=== PATIENT | female | born 1945 | race Caucasian/White ===

== ENCOUNTER 2018-07-17 09:33 | Day surgery (SDC) | payer BC ==
[2018-07-10 11:28] VITALS: BMI 32.8
[2018-07-17] MEDS ORDERED: MIDAZOLAM HCL 2 MG/2 ML SINGLE DOSE VIAL ONE (10:33)
[2018-07-17] MEDS ORDERED: ROPIVACAINE HCL 0.5% 30ML VIAL ONE (10:33)
[2018-07-17] MEDS ORDERED: PROPOFOL 20 ML ONE (11:15)
[2018-07-17] MEDS ORDERED: LIDOCAINE HCL/PF 2% SDV 5ML VIAL ONE (11:15)
[2018-07-17] MEDS ORDERED: ceFAZolin SODIUM 1 GM VIAL ONE (11:24)
[2018-07-17] MEDS ORDERED: ESMOLOL HCL 100,000 MCG/10 ML VIAL ONE (11:34)
[2018-07-17] MEDS ORDERED: DEXAMETHASONE SOD PHOSPHATE 4 MG/1 ML VIAL ONE (11:41)
[2018-07-17] MEDS ORDERED: PHENYLEPHRINE HCL 10 MG/1 ML SINGLE DOSE VIAL ONE (11:43)
[2018-07-17] MEDS ORDERED: ONDANSETRON 4 MG/2 ML VIAL ONE (11:59)
[2018-07-17] MEDS ORDERED: ONDANSETRON 4 MG/2 ML VIAL IVPUSH PRN (12:49)
[2018-07-17] MEDS ORDERED: oxyCODONE HCL 5 MG TABLET PO PRN (12:49)
[2018-07-17] MEDS ORDERED: LACTATED RINGERS SOLUTION 1,000 ML IV SCH (13:00)
[2018-07-17 13:50] VITALS: TEMP 97.5
[2018-07-17 15:05] VITALS: BP 124/69; PULSE 89
--- NOTE | 2018-07-17 15:57 | OP ---
DATE OF OPERATION: 07/17/2018 SURGEON: Lebron Carroll M.D. CALCULATION CLERK: Beth Mukherjee PREOPERATIVE DIAGNOSIS: 1. Left shoulder rotator cuff tear. 2. Left shoulder adhesive capsulitis. 3. Left shoulder impingement syndrome. 4. Left shoulder acromioclavicular joint disease. 5. Left shoulder superior labrum anterior posterior with synovitis. 6. Left shoulder ganglion cyst. POSTOPERATIVE DIAGNOSIS: 1. Left shoulder rotator cuff tear. 2. Left shoulder adhesive capsulitis. 3. Left shoulder impingement syndrome. 4. Left shoulder acromioclavicular joint disease. 5. Left shoulder superior labrum anterior posterior with synovitis. 6. Left shoulder ganglion cyst. PROCEDURE: 1. Left shoulder arthroscopy, with arthroscopic repair of rotator cuff, CPT code 22485. 2. Left shoulder arthroscopy with lysis of adhesions, CPT code 51434. 3. Left shoulder arthroscopy with subacromial decompression, CPT code 90042. 4. Left shoulder arthroscopy with resection of clavicle, acromioclavicular joint, CPT code 96173. 5. Left shoulder arthroscopy with debridement, CPT code 86852. 6. Left shoulder open excision anterior ganglion cyst. FINDINGS: 1. Excision ganglion cyst coming from the acromioclavicular joint 6 cm x 8 cm anteriorly. 2. Excessive tearing anterior posterior labrum. 3. glenoid humerus. 4. Partial biceps tear 20%. 5. Superior labrum anterior posterior type 1 with partial type 2. 6. Full thickness supraspinatus into infraspinatus tear along the medial portion. 7. Repair type: 3 side to side sutures placed along the posterior portio of the tendon including the supraspinatus, infraspinatus, allowing for complete closure, 3 side to side sutures using 2-0 Fiberwire performed. PROCEDURE: Informed consent was obtained. The patient was taken to the operating room, where the upper extremity was prepped and draped in a sterile fashion. The shoulder was manipulated for a full range of motion. A posterior incision portal was made and directed to the glenohumeral joint. Under direct visualization, an anterior incision and portal was made. Extensive synovitis, as well as chondral injuries throughout the glenohumeral joint were debrided and removed. Any identified labral injuries, including the superior labral tear, anterior and posterior, and anterior labrum torn portions, were removed as well. The rotator cuff was visualized and noted to have a full-thickness tear. The edges were debrided. The posterior incision portal was redirected to the subacromial space where a lateral incision portal was made. Excessive and thickened scar tissue noted throughout the subacromial space, including bursal and scar tissue, were removed. The type 2 acromion was converted into a flattened type 1 using a bur for subacromial decompression. The distal inferior spur at the distal clavicle was also debrided with the use of an accessory portal in the acromioclavicular joint. The edges of the rotator cuff were identified. Sutures were placed into the rotator cuff and secured using anchors through the greater tuberosity. Prior to securing, a bleeding bed was made using a small bur, creating a bleeding surface of the rotator cuff insertion. The shoulder was then drained, a single suture was placed in all portals, a sterile dressing was placed and the patient was transferred to the recovery room without complication. The PA listed above was present and assisted at surgery. Their presence was absolutely medically necessary for the completion of the procedure. They helped hold the arthroscopy, pass instruments (and implants when indicated) and the procedure could not have been completed without their assistance. ADDENDUM: Due to the size of the cyst, an incision was made on the area of the cyst and was taken down to the stalk from the AC joint. This was excised and sent to pathology for evaluation. A distal clavicle resection was performed as part of the arthroscopic procedure, which also allowed for removal of a portion of the cyst. Wound was irrigated with copious amounts of irrigation and closed with 2-0 Vicryl and 3-0 nylon. Sterile dressing was placed. The patient was transferred to recovery without complications. NOTE: Please note that Gumaro Walters, physician family service assistant, was needed to perform the surgery. There was extensive tearing, and family service assistant was needed for use of the arthroscopy, placement of implants, and passage of sutures. Without his assistance the case could not have been performed. His assistance was medically necessary. LEBRON CARROLL M.D. [id number]
--- NOTE | 2018-07-21 17:25 | PATH ---
Surgical Pathology Report Patient Name: JUAN ANTONIO RICO [facility]. Rec. #: [id number] /Age/Gender: 1945 (Age: 72) / F Account: [id number] Location: [facility] Taken: 07/17/2018 Received: 07/17/2018 Reported: 07/21/2018 Physicians: Lebron Wyatt M.D. Specimen(s) Received A: LEFT SHOULDER MASS B: LEFT SHOULDER SHAVINGS Clinical History Bursitis of left shoulder Final Diagnosis A. SHOULDER MASS, LEFT, ARTHROSCOPY AND REMOVAL: DENSE FIBROCONNECTIVE TISSUE WITH MYXOID AND DEGENERATIVE CHANGES CONSISTENT WITH GANGLION CYST AND FIBROADIPOSE TISSUE. B. SHOULDER SHAVINGS, LEFT, ARTHROSCOPY: FRAGMENTS OF BENIGN CARTILAGE, DENSE FIBROCONNECTIVE TISSUE, ADIPOSE TISSUE, AND SKELETAL MUSCLE. NODULAR CALCIFIC AGGREGATES CONSISTENT WITH CHONDROCALCINOSIS PRESENT. Electronically Signed Sabra Sanders M.D. Gross Description A. Received in formalin labeled "left shoulder mass" is a 5.0 x 1.8 x 1.3 cm dunham-yellow, irregular portion of soft tissue. Sectioning reveals focal dunham fibromembranous tissue. Product Marketing Manager sections are submitted in one cassette. B. Received in formalin, labeled "left shoulder shaving," is a 4.5 x 4.0 x 0.4 cm. aggregate of dunham-yellow soft tissue fragments. A marketing development representative portion is submitted in one cassette. /07/20/201807/20/2018
== END 2018-07-17 15:26 | disposition home or self-care (01) ==
LOC: FASU 09:33
PROVIDERS: ATTEND Orthopaedic Surgery
PROC: 0RNK4ZZ Release Left Shoulder Joint, Percutaneous Endoscopic Approach (ICD-10-PCS; 2018-07-17)
PROC: 0RBK4ZZ Excision of Left Shoulder Joint, Percutaneous Endoscopic Approach (ICD-10-PCS; 2018-07-17)
PROC: 0PBB4ZZ Excision of Left Clavicle, Percutaneous Endoscopic Approach (ICD-10-PCS; 2018-07-17)
PROC: 0KB60ZZ Excision of Left Shoulder Muscle, Open Approach (ICD-10-PCS; 2018-07-17)
PROC: 0LQ24ZZ Repair Left Shoulder Tendon, Percutaneous Endoscopic Approach (ICD-10-PCS; principal; 2018-07-17 11:42)
DX: M75.122 Complete rotator cuff tear or rupture of left shoulder, not specified as traumatic (principal); M75.02 Adhesive capsulitis of left shoulder; M75.42 Impingement syndrome of left shoulder; M19.012 Primary osteoarthritis, left shoulder; M65.812 Other synovitis and tenosynovitis, left shoulder; S43.432A Superior glenoid labrum lesion of left shoulder, initial encounter; X58.XXXA Exposure to other specified factors, initial encounter; Y93.9 Activity, unspecified; Y92.9 Unspecified place or not applicable; M67.412 Ganglion, left shoulder
CPT/HCPCS: 82962; 88304-TC; 94760

== ENCOUNTER 2019-05-18 15:52 | Emergency (ER) | payer OTHER, BC ==
[2019-05-18 15:58] VITALS: TEMP 98; BMI 32.2
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
[2019-05-18] MEDS ORDERED: ACETAMINOPHEN 325 MG TABLET (FP) PO ONE (17:25)
[2019-05-18] MEDS ORDERED: ACETAMINOPHEN 325 MG TABLET (FP) ONE (17:54)
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
[2019-05-18 18:23] VITALS: BP 132/72; PULSE 103
== END 2019-05-18 18:23 | disposition home or self-care (01) ==
LOC: JER 15:52
DX: Z04.1 Encounter for examination and observation following transport accident (principal); I10 Essential (primary) hypertension; E78.5 Hyperlipidemia, unspecified; E11.9 Type 2 diabetes mellitus without complications; M19.90 Unspecified osteoarthritis, unspecified site; E78.00 Pure hypercholesterolemia, unspecified; F17.210 Nicotine dependence, cigarettes, uncomplicated
CPT/HCPCS: 71045-TC-FY; 71111-TC-FY; 73523-TC-FY; 99283-25

== ENCOUNTER 2020-12-15 05:06 | Day surgery (SDC) | payer BC ==
[2020-12-13 12:59] VITALS: BMI 30.9
[2020-12-15] MEDS ORDERED: BUPIVACAINE HCL/PF 0.75% 10 ML VIAL ONE ×2 (07:27→09:42)
[2020-12-15] MEDS ORDERED: LIDOCAINE HCL/PF 1% SDV 5ML VIAL ONE (07:32)
[2020-12-15] MEDS ORDERED: LIDOCAINE HCL 1% PRESERVATIVE FREE - 30ML VIAL IJ ONE (09:25)
[2020-12-15] MEDS ORDERED: IOHEXOL 180 MG/1 ML ML IJ ONE (09:25)
[2020-12-15] MEDS ORDERED: BUPIVACAINE HCL/PF 0.75% 10 ML VIAL NR ONE (09:29)
[2020-12-15] MEDS ORDERED: LIDOCAINE HCL 1%, 10 MG/ML (20ML VIAL) ONE (09:41)
[2020-12-15] MEDS ORDERED: LIDOCAINE HCL 0.5%, 5 MG/ML (50mL SDVIAL) ONE (09:41)
[2020-12-15] MEDS ORDERED: BUPIVACAINE HCL ONE (09:42)
[2020-12-15 09:44] VITALS: BP 136/84; PULSE 88; TEMP 98.6
== END 2020-12-15 10:30 | disposition home or self-care (01) ==
LOC: JASU-SURG 05:06
PROVIDERS: ATTEND Pain Medicine Pain Medicine
PROC: 3E0T33Z Introduction of Anti-inflammatory into Peripheral Nerves and Plexi, Percutaneous Approach (ICD-10-PCS; 2020-12-15)
PROC: 3E0T3BZ Introduction of Anesthetic Agent into Peripheral Nerves and Plexi, Percutaneous Approach (ICD-10-PCS; principal; 2020-12-15 09:30)
DX: M47.816 Spondylosis without myelopathy or radiculopathy, lumbar region (principal)
CPT/HCPCS: 76000-TC-FY

== ENCOUNTER 2021-01-05 04:27 | Day surgery (SDC) | payer BC ==
[2021-01-04 13:14] VITALS: BMI 30.9
[2021-01-05] MEDS ORDERED: LIDOCAINE HCL/PF 1% SDV 5ML VIAL ONE (07:40)
[2021-01-05] MEDS ORDERED: DEXAMETHASONE SOD PHOSPHATE 10 MG/1 ML VIAL ONE (08:47)
[2021-01-05 08:54] VITALS: BP 128/72; PULSE 92; TEMP 98.5
== END 2021-01-05 09:15 | disposition home or self-care (01) ==
LOC: JASU-SURG 04:27
PROVIDERS: ATTEND Pain Medicine Pain Medicine
PROC: 3E0R33Z Introduction of Anti-inflammatory into Spinal Canal, Percutaneous Approach (ICD-10-PCS; 2021-01-05)
PROC: B01BYZZ Fluoroscopy of Spinal Cord using Other Contrast (ICD-10-PCS; 2021-01-05)
PROC: 3E0R3BZ Introduction of Anesthetic Agent into Spinal Canal, Percutaneous Approach (ICD-10-PCS; principal; 2021-01-05 08:15)
DX: M54.16 Radiculopathy, lumbar region (principal); M48.061 Spinal stenosis, lumbar region without neurogenic claudication
CPT/HCPCS: 76000-TC-FY; J1100

== ENCOUNTER 2022-02-26 14:38 | Emergency (ER) | payer BC, OTHER ==
[2022-02-26] MEDS ORDERED: ACETAMINOPHEN 325 MG TABLET (FP) PO ONE (15:29)
[2022-02-26] MEDS ORDERED: LIDOCAINE 5% TOPICAL PATCH TP ONE (15:30)
[2022-02-26] MEDS ORDERED: DIPHTH,PERTUSS(ACELL),TET 0.5 ML DISP.SYRIN IM ONE ×2 (15:30→15:42)
[2022-02-26 15:34] VITALS: BP 125/60; PULSE 107; RESP 20; TEMP 98.2; BMI 28.5
[2022-02-26] MEDS ORDERED: ACETAMINOPHEN 325 MG TABLET (FP) ONE (15:42)
[2022-02-26] MEDS ORDERED: LIDOCAINE 5% TOPICAL PATCH ONE (15:43)
[2022-02-26] MEDS ORDERED: KETOROLAC TROMETHAMINE 30 MG/1 ML VIAL IM ONE (18:06)
[2022-02-26] MEDS ORDERED: KETOROLAC TROMETHAMINE 30 MG/1 ML VIAL ONE (18:37)
[2022-02-26] MEDS ORDERED: LIDOCAINE PATCH REMOVAL MC SCH (22:00)
== END 2022-02-26 19:40 | disposition home or self-care (01) ==
LOC: JER 14:38
PROC: 3E0234Z Introduction of Serum, Toxoid and Vaccine into Muscle, Percutaneous Approach (ICD-10-PCS; principal; 2022-02-26)
PROC: 3E0233Z Introduction of Anti-inflammatory into Muscle, Percutaneous Approach (ICD-10-PCS; 2022-02-26)
DX: S09.90XA Unspecified injury of head, initial encounter (principal); W01.0XXA Fall on same level from slipping, tripping and stumbling without subsequent striking against object, initial encounter
CPT/HCPCS: 70450-TC; 72125-TC; 73030-TC-RT-FY; 90715; 93005; 93010; 99285-25

== ENCOUNTER 2023-07-14 19:26 | Inpatient (IN) | payer BC, OTHER ==
[2023-07-14] MEDS ORDERED: ASPIRIN 81 MG CHEWABLE TABLETS ONE (20:23)
[2023-07-14] MEDS: ASPIRIN 81 MG CHEWABLE TABLETS PO ONE (20:35)
[2023-07-14 20:48] LABS: BASO % 0.5 % (0-2.0); EOS % 0.5 % (0-4.5); HEMATOCRIT 33.6 % (32.4-45.2); HEMOGLOBIN 10.8 GM/dL (10.7-15.3); LYMPH % 7.7 % (8-40); MCH 29.3 pg (25.7-33.7); MCHC 32.2 g/dl (32.0-36.0); MEAN CELL VOLUME 90.8 fl (80-96); MEAN PLT VOLUME 8.7 fl (7.5-11.1); MONO % 3.4 % (3.8-10.2); NEUT % 87.9 % (42.8-82.8); PLATELET COUNT 316 10^3/uL (134-434); RDW 19.3 % (11.6-15.6)
[2023-07-14 20:55] LABS: INR 1.16 (0.83-1.09); PROTHROMBIN TIME (PATIENT) 13.4 SEC (9.7-13.0)
[2023-07-14 20:58] LABS: ACTIVATED PTT 25.4 SECONDS (25.2-36.5)
[2023-07-14] MEDS ORDERED: dilTIAZem HCL 125 MG/25 ML - 25 ML VIAL ONE (21:01)
[2023-07-14 21:02] LABS: POTASSIUM 4.7 mmol/L (3.5-5.1)
[2023-07-14] MEDS ORDERED: HEPARIN INFUSION - 25,000 UNITS/500 ML INFUS.BAG IVPB ONE (21:02)
[2023-07-14 21:04] LABS: CALCIUM 9.7 mg/dL (8.5-10.1)
[2023-07-14 21:05] LABS: ALBUMIN 2.9 g/dl (3.4-5.0); BLOOD UREA NITROGEN 51.6 mg/dL (7-18); MAGNESIUM 2.4 mg/dL (1.8-2.4)
[2023-07-14 21:08] LABS: CREATININE 2.3 mg/dL (0.55-1.3)
[2023-07-14 21:09] LABS: BILIRUBIN,TOTAL 1.1 mg/dL (0.2-1); TOT PROT 6.4 g/dl (6.4-8.2)
[2023-07-14 21:13] LABS: N-TERMINAL BNP 11747.3 pg/ml (5-450)
[2023-07-14] MEDS: dilTIAZem HCL 50 MG/10 ML - 10 ML VIAL IVPUSH ONE (21:28)
[2023-07-14] MEDS ORDERED: HEPARIN INFUSION - 500 ML IVPB SCH (21:30)
[2023-07-14] MEDS ORDERED: HEPARIN NA (PORCINE) 5,000 UNITS/ML 1ML VIAL IVPUSH PRN ×2 (21:48)
[2023-07-14] MEDS ORDERED: METOPROLOL TARTRATE 25 MG TABLET (FP) ONE (21:53)
[2023-07-14] MEDS: HEPARIN SOD,PORK IN 0.45% NACL 25,000 UNIT/500 ML INFUS.BAG IVPB SCH (22:10)
[2023-07-14] MEDS ORDERED: EMPAGLIFLOZIN (JARDIANCE) 10 MG TABLET PO SCH ×2 (22:15→22:30)
[2023-07-14] MEDS: METOPROLOL TARTRATE 25 MG TABLET (FP) PO STA (22:18)
[2023-07-14] MEDS ORDERED: METOPROLOL TARTRATE 5 MG/5 ML VIAL ONE (23:17)
[2023-07-14] MEDS: METOPROLOL TARTRATE 5 MG/5 ML VIAL IVPUSH ONE (23:21)
[2023-07-15 01:40] VITALS: BMI 27.3
[2023-07-15] MEDS: FUROSEMIDE 40 MG/4 ML INJECTABLE VIAL IVPUSH SCH (01:52)
[2023-07-15] MEDS: INSULIN ASPART SLIDING SCALE (NOVOLOG) 1 VIAL SQ SCH (06:02)
[2023-07-15] MEDS: EMPAGLIFLOZIN (JARDIANCE) 10 MG TABLET PO SCH (06:53)
[2023-07-15 08:20] LABS: EOS % 1.3 % (0-4.5); HEMATOCRIT 31.9 % (32.4-45.2); HEMOGLOBIN 10.2 GM/dL (10.7-15.3); LYMPH % 21.8 % (8-40); MCH 29.3 pg (25.7-33.7); MCHC 32.1 g/dl (32.0-36.0); MEAN CELL VOLUME 91.3 fl (80-96); MEAN PLT VOLUME 8.8 fl (7.5-11.1); MONO % 4.2 % (3.8-10.2); NEUT % 70.7 % (42.8-82.8); PLATELET COUNT 305 10^3/uL (134-434); RBC 3.49 M/mm3 (3.60-5.2); RDW 19.4 % (11.6-15.6); WHITE BLOOD COUNT 4.7 K/mm3 (4.0-10.0)
[2023-07-15 08:40] LABS: POTASSIUM 4.3 mmol/L (3.5-5.1)
[2023-07-15 08:42] LABS: CALCIUM 9.5 mg/dL (8.5-10.1)
[2023-07-15 08:43] LABS: ALBUMIN 2.8 g/dl (3.4-5.0); BLOOD UREA NITROGEN 59.6 mg/dL (7-18); MAGNESIUM 2.5 mg/dL (1.8-2.4)
[2023-07-15 08:46] LABS: CREATININE 2.5 mg/dL (0.55-1.3)
[2023-07-15 08:47] LABS: TOT PROT 5.8 g/dl (6.4-8.2)
[2023-07-15 08:48] LABS: BILIRUBIN,DIRECT 0.5 mg/dL (0.0-0.2)
[2023-07-15 08:49] LABS: PHOSPHOROUS 4.6 mg/dL (2.5-4.9)
[2023-07-15 08:50] LABS: BILIRUBIN,TOTAL 1.6 mg/dL (0.2-1)
[2023-07-15] MEDS: metoPROLOL SUCCINATE 25 MG TAB.SR.24H (FP) PO ONE ×2 (12:40→21:49)
[2023-07-15 15:43] LABS: PH,URINE 5.5 (5.0-8.0); URINE APPEARANCE CLEAR; URINE BILIRUBIN NEGATIVE (NEGATIVE); URINE COLOR YELLOW; URINE GLUCOSE (UA) 2+ (NEGATIVE); URINE KETONE NEGATIVE (NEGATIVE); URINE LEUK ESTERASE NEGATIVE (NEGATIVE); URINE NITRITE NEGATIVE (NEGATIVE); URINE PROTEIN NEGATIVE (NEGATIVE); URINE UROBILINOGEN 0.2 mg/dL (0.2-1.0)
[2023-07-15] MEDS: RIVAROXABAN 15 MG TABLET PO SCH (17:34)
[2023-07-15] MEDS: SACUBITRIL/VALSARTAN 24 MG-26 MG TABLET PO SCH (21:49)
[2023-07-16] MEDS: INSULIN (LEVEMIR) 100 UNITS/ML UNITS SQ SCH (06:51)
[2023-07-16] MEDS: metoPROLOL SUCCINATE 25 MG TAB.SR.24H (FP) PO SCH ×2 (09:24→21:09)
[2023-07-16 09:46] LABS: HEMATOCRIT 33.7 % (32.4-45.2); HEMOGLOBIN 10.8 GM/dL (10.7-15.3); MCH 29.1 pg (25.7-33.7); MCHC 32.1 g/dl (32.0-36.0); MEAN CELL VOLUME 90.9 fl (80-96); MEAN PLT VOLUME 8.7 fl (7.5-11.1); PLATELET COUNT 291 10^3/uL (134-434); RDW 19.2 % (11.6-15.6); WHITE BLOOD COUNT 4.7 K/mm3 (4.0-10.0)
[2023-07-16 10:00] LABS: BILIRUBIN,DIRECT 0.4 mg/dL (0.0-0.2)
[2023-07-16] MEDS ORDERED: metoPROLOL SUCCINATE 25 MG TAB.SR.24H (FP) PO SCH (10:00)
[2023-07-16 10:02] LABS: BLOOD UREA NITROGEN 58.9 mg/dL (7-18)
[2023-07-16 10:05] LABS: ALBUMIN 2.5 g/dl (3.4-5.0); CREATININE 2.6 mg/dL (0.55-1.3); PHOSPHOROUS 3.9 mg/dL (2.5-4.9)
[2023-07-16 10:06] LABS: BILIRUBIN,TOTAL 0.8 mg/dL (0.2-1); CALCIUM 9.3 mg/dL (8.5-10.1); MAGNESIUM 2.3 mg/dL (1.8-2.4); TOT PROT 5.5 g/dl (6.4-8.2)
[2023-07-17 09:19] LABS: POTASSIUM 4.1 mmol/L (3.5-5.1)
[2023-07-17 10:13] LABS: CREATININE 2.6 mg/dL (0.55-1.3)
[2023-07-17 10:14] LABS: BILIRUBIN,TOTAL 0.6 mg/dL (0.2-1); TOT PROT 5.7 g/dl (6.4-8.2)
[2023-07-17 10:15] LABS: ALBUMIN 2.4 g/dl (3.4-5.0); CALCIUM 9.4 mg/dL (8.5-10.1)
[2023-07-17 10:16] LABS: BLOOD UREA NITROGEN 59.7 mg/dL (7-18); MAGNESIUM 2.1 mg/dL (1.8-2.4)
[2023-07-18 09:06] LABS: HEMATOCRIT 34.6 % (32.4-45.2); HEMOGLOBIN 11.1 GM/dL (10.7-15.3); MCH 28.6 pg (25.7-33.7); MCHC 32.1 g/dl (32.0-36.0); MEAN CELL VOLUME 89.2 fl (80-96); MEAN PLT VOLUME 8.2 fl (7.5-11.1); PLATELET COUNT 348 10^3/uL (134-434); RBC 3.88 M/mm3 (3.60-5.2); RDW 18.6 % (11.6-15.6); WHITE BLOOD COUNT 5.7 K/mm3 (4.0-10.0)
[2023-07-18 09:26] LABS: POTASSIUM 3.4 mmol/L (3.5-5.1)
[2023-07-18 09:32] LABS: BLOOD UREA NITROGEN 68.2 mg/dL (7-18); CALCIUM 8.8 mg/dL (8.5-10.1); MAGNESIUM 2.3 mg/dL (1.8-2.4)
[2023-07-18 09:33] LABS: ALBUMIN 2.4 g/dl (3.4-5.0)
[2023-07-18 09:35] LABS: PHOSPHOROUS 4.2 mg/dL (2.5-4.9)
[2023-07-18 09:36] LABS: CREATININE 2.5 mg/dL (0.55-1.3)
[2023-07-18 09:37] LABS: BILIRUBIN,TOTAL 0.6 mg/dL (0.2-1); TOT PROT 5.2 g/dl (6.4-8.2)
[2023-07-18] MEDS: SACUBITRIL/VALSARTAN 24 MG-26 MG TABLET PO SCH (21:24)
[2023-07-19 08:00] LABS: HEMATOCRIT 32.8 % (32.4-45.2); HEMOGLOBIN 10.7 GM/dL (10.7-15.3); MCH 29.1 pg (25.7-33.7); MCHC 32.7 g/dl (32.0-36.0); MEAN CELL VOLUME 88.9 fl (80-96); PLATELET COUNT 334 10^3/uL (134-434); RBC 3.69 M/mm3 (3.60-5.2); RDW 19.3 % (11.6-15.6); WHITE BLOOD COUNT 7.2 K/mm3 (4.0-10.0)
[2023-07-19 08:31] LABS: POTASSIUM 3.6 mmol/L (3.5-5.1)
[2023-07-19 08:53] LABS: ALBUMIN 2.3 g/dl (3.4-5.0); BLOOD UREA NITROGEN 70.9 mg/dL (7-18); CALCIUM 8.8 mg/dL (8.5-10.1); MAGNESIUM 2.1 mg/dL (1.8-2.4)
[2023-07-19 08:56] LABS: CREATININE 2.6 mg/dL (0.55-1.3)
[2023-07-19 08:57] LABS: BILIRUBIN,TOTAL 0.7 mg/dL (0.2-1); TOT PROT 5.4 g/dl (6.4-8.2)
[2023-07-19] MEDS: POTASSIUM CHLORIDE ORAL LIQUID 20 MEQ/15 ML PO ONE (16:40)
[2023-07-19] MEDS: INSULIN (LEVEMIR) 100 UNITS/ML UNITS SQ SCH (21:29)
[2023-07-20] MEDS: FUROSEMIDE 40 MG/4 ML INJECTABLE VIAL IVPUSH SCH (06:33)
[2023-07-20 08:58] LABS: POTASSIUM 4.1 mmol/L (3.5-5.1)
[2023-07-20 08:59] LABS: BLOOD UREA NITROGEN 69.2 mg/dL (7-18); CALCIUM 9.2 mg/dL (8.5-10.1)
[2023-07-20 09:01] LABS: ALBUMIN 2.4 g/dl (3.4-5.0)
[2023-07-20 09:04] LABS: BILIRUBIN,TOTAL 0.7 mg/dL (0.2-1); CREATININE 2.5 mg/dL (0.55-1.3); TOT PROT 5.9 g/dl (6.4-8.2)
[2023-07-20] MEDS: ACETAMINOPHEN 325 MG TABLET (FP) PO PRN (11:07)
[2023-07-20] MEDS: LIDOCAINE 4% PATCH TP SCH (13:22)
[2023-07-20] MEDS: LIDOCAINE PATCH REMOVAL MC SCH (21:11)
[2023-07-21 09:17] LABS: BASO % 1.2 % (0-2.0); EOS % 2.1 % (0-4.5); HEMATOCRIT 31.2 % (32.4-45.2); HEMOGLOBIN 10.1 GM/dL (10.7-15.3); LYMPH % 15.6 % (8-40); MCH 28.9 pg (25.7-33.7); MCHC 32.4 g/dl (32.0-36.0); MEAN CELL VOLUME 89.4 fl (80-96); MEAN PLT VOLUME 8.5 fl (7.5-11.1); MONO % 7.6 % (3.8-10.2); NEUT % 73.5 % (42.8-82.8); PLATELET COUNT 323 10^3/uL (134-434); RBC 3.49 M/mm3 (3.60-5.2); WHITE BLOOD COUNT 5.9 K/mm3 (4.0-10.0)
[2023-07-21 10:16] LABS: POTASSIUM 4.3 mmol/L (3.5-5.1)
[2023-07-21 10:23] LABS: BLOOD UREA NITROGEN 70.3 mg/dL (7-18); MAGNESIUM 2.3 mg/dL (1.8-2.4)
[2023-07-21 10:24] LABS: CALCIUM 9.2 mg/dL (8.5-10.1)
[2023-07-21] MEDS: FUROSEMIDE 40 MG TABLET (FP) PO SCH (10:25)
[2023-07-21 10:26] LABS: CREATININE 2.6 mg/dL (0.55-1.3)
[2023-07-22 08:36] LABS: HEMATOCRIT 30.5 % (32.4-45.2); HEMOGLOBIN 10.2 GM/dL (10.7-15.3); MCH 29.3 pg (25.7-33.7); MCHC 33.5 g/dl (32.0-36.0); MEAN CELL VOLUME 87.5 fl (80-96); MEAN PLT VOLUME 8.3 fl (7.5-11.1); PLATELET COUNT 308 10^3/uL (134-434); RBC 3.48 M/mm3 (3.60-5.2); RDW 18.8 % (11.6-15.6); WHITE BLOOD COUNT 5.8 K/mm3 (4.0-10.0)
[2023-07-22 08:53] LABS: POTASSIUM 3.7 mmol/L (3.5-5.1)
[2023-07-22 09:03] LABS: ALBUMIN 2.2 g/dl (3.4-5.0); BLOOD UREA NITROGEN 71.2 mg/dL (7-18); CALCIUM 8.9 mg/dL (8.5-10.1)
[2023-07-22 09:07] LABS: BILIRUBIN,TOTAL 0.7 mg/dL (0.2-1); CREATININE 2.4 mg/dL (0.55-1.3)
[2023-07-22 09:09] LABS: TOT PROT 5.5 g/dl (6.4-8.2)
[2023-07-22] MEDS: SACUBITRIL/VALSARTAN 24 MG-26 MG TABLET PO SCH (13:28)
[2023-07-22] MEDS: metoPROLOL SUCCINATE 25 MG TAB.SR.24H (FP) PO ONE (17:31)
[2023-07-22] MEDS: METOPROLOL SUCCINATE 100 MG, METOPROLOL SUCCINATE 25 MG PO SCH (21:04)
[2023-07-23 01:46] VITALS: RESP 18
[2023-07-23 08:12] LABS: POTASSIUM 3.4 mmol/L (3.5-5.1)
[2023-07-23 08:14] LABS: CALCIUM 8.5 mg/dL (8.5-10.1)
[2023-07-23 08:15] LABS: BLOOD UREA NITROGEN 67.3 mg/dL (7-18)
[2023-07-23 08:18] LABS: CREATININE 2.4 mg/dL (0.55-1.3)
[2023-07-23] MEDS ORDERED: metoPROLOL SUCCINATE 25 MG TAB.SR.24H (FP) PO ONE (09:57)
[2023-07-23] MEDS: POTASSIUM CHLORIDE ORAL LIQUID 20 MEQ/15 ML PO ONE (15:15)
[2023-07-23 15:19] LABS: MAGNESIUM 2.2 mg/dL (1.8-2.4)
[2023-07-24 05:25] VITALS: TEMP 97.9
[2023-07-24 08:51] LABS: HEMATOCRIT 30.4 % (32.4-45.2); HEMOGLOBIN 9.9 GM/dL (10.7-15.3); MCH 28.6 pg (25.7-33.7); MCHC 32.4 g/dl (32.0-36.0); MEAN CELL VOLUME 88.4 fl (80-96); MEAN PLT VOLUME 8.4 fl (7.5-11.1); PLATELET COUNT 317 10^3/uL (134-434); RBC 3.44 M/mm3 (3.60-5.2); RDW 18.4 % (11.6-15.6); WHITE BLOOD COUNT 4.6 K/mm3 (4.0-10.0)
[2023-07-24 09:05] LABS: POTASSIUM 4.2 mmol/L (3.5-5.1)
[2023-07-24 09:07] LABS: CALCIUM 8.6 mg/dL (8.5-10.1)
[2023-07-24 09:08] LABS: BLOOD UREA NITROGEN 68.5 mg/dL (7-18)
[2023-07-24 09:11] LABS: CREATININE 2.6 mg/dL (0.55-1.3)
[2023-07-24 12:20] VITALS: BP 109/72; PULSE 115
== END 2023-07-24 12:23 | disposition short-term general hospital (02) | DRG 308 ==
LOC: JER 19:26 → JERBED 22:49 → J4S 07-15 01:13
PROVIDERS: ADMIT Internal Medicine; ATTEND Internal Medicine
DX: I48.91 Unspecified atrial fibrillation (principal); I50.23 Acute on chronic systolic (congestive) heart failure; I24.9 Acute ischemic heart disease, unspecified; J98.11 Atelectasis; N17.9 Acute kidney failure, unspecified; I13.0 Hypertensive heart and chronic kidney disease with heart failure and stage 1 through stage 4 chronic kidney disease, or unspecified chronic kidney disease; N18.9 Chronic kidney disease, unspecified; E11.22 Type 2 diabetes mellitus with diabetic chronic kidney disease; E78.5 Hyperlipidemia, unspecified; M54.16 Radiculopathy, lumbar region; M50.30 Other cervical disc degeneration, unspecified cervical region; M19.011 Primary osteoarthritis, right shoulder; D17.79 Benign lipomatous neoplasm of other sites; K76.0 Fatty (change of) liver, not elsewhere classified; R00.0 Tachycardia, unspecified; E87.6 Hypokalemia; Z96.641 Presence of right artificial hip joint; Z96.652 Presence of left artificial knee joint
CPT/HCPCS: 0241U-QW; 36415; 71045-TC-FY; 71046-TC-FY; 71250-TC; 73030-TC-RT-FY; 76700-TC; 80048; 80053; 80061; 81003; 82248; 82272; 82550; 82962; 83036; 83735; 83880; 84100; 84439; 84443; 84484; 85025; 85027; 85610; 85730; 86704; 86803; 87340; 87517; 93005; 93010; 93306-TC; 97116-GP; 97161-GP; 99285-25

== ENCOUNTER 2023-10-24 13:18 | Emergency (ER) | payer BC, OTHER ==
[2023-10-24 13:25] VITALS: BP 154/56; PULSE 86; RESP 18; TEMP 97.1; BMI 26.7
[2023-10-24] MEDS ORDERED: ACETAMINOPHEN INJECTION 100 ML IVPB ONE (15:08)
[2023-10-24 16:01] LABS: EPI CELLS 18 /uL (0-25.1); HYALINE CASTS 1 /uL (0-3.1); URINE APPEARANCE CLEAR; URINE BACTERIA 1187 /uL (0-1359); URINE BILIRUBIN NEGATIVE (NEGATIVE); URINE COLOR YELLOW; URINE GLUCOSE (UA) 3+ (NEGATIVE); URINE KETONE NEGATIVE (NEGATIVE); URINE LEUK ESTERASE NEGATIVE (NEGATIVE); URINE NITRITE NEGATIVE (NEGATIVE); URINE PROTEIN 1+ (NEGATIVE); URINE UROBILINOGEN 0.2 mg/dL (0.2-1.0); URINE WBC 16 /uL (0-25.8)
[2023-10-24] MEDS: ACETAMINOPHEN 1000 MG/100 ML BAG IVPB ONE (16:47)
[2023-10-24 16:54] LABS: BASO % 0.4 % (0-2.0); EOS % 0.3 % (0-4.5); HEMATOCRIT 29.8 % (32.4-45.2); HEMOGLOBIN 9.8 GM/dL (10.7-15.3); LYMPH % 9.1 % (8-40); MCH 28.8 pg (25.7-33.7); MCHC 32.9 g/dl (32.0-36.0); MEAN CELL VOLUME 87.7 fl (80-96); MEAN PLT VOLUME 7.7 fl (7.5-11.1); MONO % 5.5 % (3.8-10.2); NEUT % 84.7 % (42.8-82.8); PLATELET COUNT 320 10^3/uL (134-434); RDW 16.9 % (11.6-15.6); WHITE BLOOD COUNT 7.6 K/mm3 (4.0-10.0)
[2023-10-24 16:59] LABS: INR 1.31 (0.83-1.09); PROTHROMBIN TIME (PATIENT) 14.7 SEC (9.7-13.0)
[2023-10-24 17:13] LABS: POTASSIUM 4.6 mmol/L (3.5-5.1)
[2023-10-24 17:17] LABS: ALBUMIN 2.9 g/dl (3.4-5.0); BLOOD UREA NITROGEN 45.3 mg/dL (7-18); CALCIUM 9.4 mg/dL (8.5-10.1)
[2023-10-24 17:19] LABS: CREATININE 1.7 mg/dL (0.55-1.3)
[2023-10-24 17:21] LABS: BILIRUBIN,TOTAL 0.8 mg/dL (0.2-1); TOT PROT 6.6 g/dl (6.4-8.2)
[2023-10-24] MEDS ORDERED: morphine SULFATE 4 MG/ML VIAL ONE (17:47)
[2023-10-24] MEDS: morphine CARPU-JECT 4 MG/1 ML DISP.SYRIN IVPUSH ONE (18:09)
== END 2023-10-24 18:50 | disposition home or self-care (01) ==
LOC: JER 13:18
PROC: 3E033NZ Introduction of Analgesics, Hypnotics, Sedatives into Peripheral Vein, Percutaneous Approach (ICD-10-PCS; principal; 2023-10-24)
DX: M54.50 Low back pain, unspecified (principal); S63.005A Unspecified dislocation of left wrist and hand, initial encounter; M79.89 Other specified soft tissue disorders; X58.XXXA Exposure to other specified factors, initial encounter; Z20.822 Contact with and (suspected) exposure to COVID-19
CPT/HCPCS: 0241U-QW; 36415; 71045-TC-FY; 73110-TC-LT-FY; 74176-TC; 80053; 81003; 83605; 83690; 84484; 85025; 85610; 86850; 86900; 86901; 87086; 87186; 93005; 93010; 99285-25; J0131

== ENCOUNTER 2024-09-22 16:52 | Inpatient (IN) | payer BC, OTHER ==
[2024-09-22 17:53] LABS: HEMATOCRIT 19.5 % (34.1-44.9); MCHC 32.8 g/dl (32.2-35.5); MEAN CELL VOLUME 119.6 fl (79.4-94.8); MEAN PLT VOLUME 12.3 fl (9.4-12.3); PLATELET COUNT 191 x10^3/uL (182-369); RDW 18.9 % (12.4-16.6)
[2024-09-22 17:59] LABS: HEMOGLOBIN 6.4 g/dL (11.2-15.7)
[2024-09-22 18:05] LABS: INR 0.99 (0.83-1.09)
[2024-09-22 18:07] LABS: ACTIVATED PTT 28.7 SECONDS (25.2-36.5)
[2024-09-22 18:17] LABS: ALBUMIN 3.8 g/dl (3.4-5.0); BILIRUBIN,TOTAL 0.7 mg/dl (0.2-1); CALCIUM 8.8 mg/dl (8.5-10.1); CREATININE 1.6 mg/dl (0.6-1.3); MAGNESIUM 2.2 mg/dL (1.8-2.4); POTASSIUM 5.3 mmol/L (3.5-5.1); TOT PROT 5.8 g/dl (6.4-8.2)
[2024-09-22 22:30] VITALS: BMI 25.0
[2024-09-22 23:18] LABS: HCV DIAGNOSTIC IN-HOUSE W/RFLX NON-REACTIVE (NONREACTIVE)
[2024-09-22 23:20] LABS: HIV INTERPRETATION NEGATIVE (NEGATIVE)
[2024-09-23] MEDS: CEPHALEXIN MONOHYDRATE 500 MG CAPSULE (UD) PO SCH (00:57)
[2024-09-23] MEDS: EMPAGLIFLOZIN (JARDIANCE) 10 MG TABLET PO SCH (06:19)
[2024-09-23 08:36] LABS: HEMATOCRIT 21.6 % (34.1-44.9); HEMOGLOBIN 7.2 g/dL (11.2-15.7); MCHC 33.3 g/dl (32.2-35.5); MEAN CELL VOLUME 108.5 fl (79.4-94.8); MEAN PLT VOLUME 12.7 fl (9.4-12.3); PLATELET COUNT 165 x10^3/uL (182-369)
[2024-09-23 09:04] LABS: CALCIUM 8.2 mg/dl (8.5-10.1); CREATININE 1.6 mg/dl (0.6-1.3); POTASSIUM 4.8 mmol/L (3.5-5.1)
[2024-09-23] MEDS: MULTIVITAMINS (DAILY MVI) TABLET (FP) PO SCH (11:11)
[2024-09-23] MEDS: FOLIC ACID 1 MG TABLET (FP) PO SCH (11:11)
[2024-09-23] MEDS: CYANOCOBALAMIN 1,000 MCG TABLET (FP) PO SCH (11:11)
[2024-09-23] MEDS: PANTOPRAZOLE SODIUM 40 MG VIAL IVPUSH SCH (11:13)
[2024-09-23 12:40] LABS: Reticulocyte % 2.75 % (0.5-1.7)
[2024-09-23] MEDS: ATORVASTATIN CA 40 MG TABLET (FP) PO SCH (21:10)
[2024-09-24 10:59] LABS: HEMATOCRIT 21.5 % (34.1-44.9); HEMOGLOBIN 7.2 g/dL (11.2-15.7); MCHC 33.5 g/dl (32.2-35.5); MEAN CELL VOLUME 109.1 fl (79.4-94.8); MEAN PLT VOLUME 12.3 fl (9.4-12.3); PLATELET COUNT 168 x10^3/uL (182-369); RDW 23.9 % (12.4-16.6)
[2024-09-24 11:07] LABS: ALBUMIN 3.3 g/dl (3.4-5.0); BILIRUBIN,TOTAL 0.9 mg/dl (0.2-1); CALCIUM 7.7 mg/dl (8.5-10.1); CREATININE 1.6 mg/dl (0.6-1.3); POTASSIUM 4.7 mmol/L (3.5-5.1)
[2024-09-24] MEDS: CEFTRIAXONE 1 G/50 ML PREMIX 50 ML IVPB SCH (13:13)
[2024-09-25 08:24] LABS: HEMOGLOBIN 7.1 g/dL (11.2-15.7); MCHC 33.8 g/dl (32.2-35.5); MEAN CELL VOLUME 110.5 fl (79.4-94.8); MEAN PLT VOLUME 12.5 fl (9.4-12.3); PLATELET COUNT 203 x10^3/uL (182-369); RDW 22.3 % (12.4-16.6)
[2024-09-25 09:07] LABS: ALBUMIN 3.4 g/dl (3.4-5.0); BILIRUBIN,TOTAL 0.8 mg/dl (0.2-1); CALCIUM 7.9 mg/dl (8.5-10.1); CREATININE 1.7 mg/dl (0.6-1.3); POTASSIUM 5.3 mmol/L (3.5-5.1)
[2024-09-25] MEDS: SODIUM ZIRCONIUM CYCLOSILICATE (LOKELMA) 5 GM PACKET PO ONE (12:13)
[2024-09-26] MEDS: SACUBITRIL/VALSARTAN 24 MG-26 MG TABLET PO SCH (10:17)
[2024-09-27 07:46] LABS: ABSOLUTE IMMATURE GRANULOCYTES 0.01 x10^3/uL (0.0-0.031); BASOPHILS # 0.03 x10^3/uL (0.01-0.08); EOSINOPHIL % 3.9 % (0.7-5.8); EOSINOPHILS # 0.07 x10^3/uL (0.04-0.36); HEMATOCRIT 19.4 % (34.1-44.9); MCHC 33.5 g/dl (32.2-35.5); MEAN CELL VOLUME 109.6 fl (79.4-94.8); MEAN PLT VOLUME 11.7 fl (9.4-12.3); MONOCYTE # 0.08 x10^3/uL (0.24-0.86); MONOCYTE % 4.5 % (4.7-12.5); PLATELET COUNT 150 x10^3/uL (182-369); RDW 20.4 % (12.4-16.6)
[2024-09-27 07:56] LABS: HEMOGLOBIN 6.5 g/dL (11.2-15.7)
[2024-09-27 08:53] LABS: ALBUMIN 3.3 g/dl (3.4-5.0); BILIRUBIN,TOTAL 0.6 mg/dl (0.2-1); CALCIUM 7.8 mg/dl (8.5-10.1); CREATININE 1.7 mg/dl (0.6-1.3); POTASSIUM 4.9 mmol/L (3.5-5.1)
[2024-09-27] MEDS: SACUBITRIL/VALSARTAN 24 MG-26 MG TABLET PO SCH (21:14)
[2024-09-27] MEDS: ATORVASTATIN CA 40 MG TABLET (FP) PO SCH (21:14)
[2024-09-27] MEDS: PANTOPRAZOLE SODIUM 40 MG VIAL IVPUSH SCH (21:14)
[2024-09-28] MEDS: ACETAMINOPHEN 325 MG TABLET (FP) PO PRN (01:15)
[2024-09-28] MEDS ORDERED: MELATONIN 5 MG TABLETS PO PRN (01:55)
[2024-09-28] MEDS: EMPAGLIFLOZIN (JARDIANCE) 10 MG TABLET PO SCH (06:31)
[2024-09-28 08:40] LABS: HEMATOCRIT 22.8 % (34.1-44.9); HEMOGLOBIN 7.5 g/dL (11.2-15.7); MCHC 32.9 g/dl (32.2-35.5); MEAN CELL VOLUME 105.6 fl (79.4-94.8); MEAN PLT VOLUME 12.1 fl (9.4-12.3); PLATELET COUNT 138 x10^3/uL (182-369); RDW 22.4 % (12.4-16.6)
[2024-09-28 09:07] LABS: POTASSIUM 4.8 mmol/L (3.5-5.1)
[2024-09-28 09:22] LABS: ALBUMIN 2.9 g/dl (3.4-5.0); CALCIUM 8.3 mg/dL (8.5-10.1)
[2024-09-28 09:24] LABS: BLOOD UREA NITROGEN 48.4 mg/dL (7-18)
[2024-09-28 09:27] LABS: CREATININE 1.6 mg/dL (0.55-1.3)
[2024-09-28 09:28] LABS: BILIRUBIN,TOTAL 0.7 mg/dL (0.2-1); TOT PROT 5.2 g/dl (6.4-8.2)
[2024-09-28] MEDS: MULTIVITAMINS (DAILY MVI) TABLET (FP) PO SCH (09:54)
[2024-09-28] MEDS: CEFTRIAXONE 1 G/50 ML PREMIX 50 ML IVPB SCH (09:54)
[2024-09-28] MEDS: FOLIC ACID 1 MG TABLET (FP) PO SCH (09:54)
[2024-09-28] MEDS: CYANOCOBALAMIN 1,000 MCG TABLET (FP) PO SCH (09:54)
[2024-09-28] MEDS: MINERAL OIL/PET HY-PHL TOPICAL OINTMENT 454 GM JAR TP SCH (18:04)
[2024-09-28] MEDS ORDERED: AMPICILLIN NA/SULBACTAM NA 1.5 GM VIAL ONE (18:38)
[2024-09-28] MEDS: AMPICILLIN NA/SULBACTAM NA 1.5 GM in SODIUM CHLORIDE 100 ML IVPB SCH (18:44)
[2024-09-28] MEDS: INSULIN (NOVOLOG) ASPART 100 UNITS/ML 10ML VIAL SQ ONE (18:45)
[2024-09-28] MEDS ORDERED: INSULIN ASPART SLIDING SCALE (NOVOLOG) 1 VIAL SQ ONE (18:50)
[2024-09-28] MEDS: INSULIN ASPART SLIDING SCALE (NOVOLOG) 1 VIAL SQ SCH (21:55)
[2024-09-29 07:38] LABS: ABSOLUTE IMMATURE GRANULOCYTES 0.02 x10^3/uL (0.0-0.031); BASOPHILS # 0.03 x10^3/uL (0.01-0.08); EOSINOPHILS # 0.19 x10^3/uL (0.04-0.36); HEMOGLOBIN 7.6 g/dL (11.2-15.7); MEAN PLT VOLUME 12.9 fl (9.4-12.3); MONOCYTE # 0.17 x10^3/uL (0.24-0.86); MONOCYTE % 6.2 % (4.7-12.5); PLATELET COUNT 137 x10^3/uL (182-369); RDW 21.3 % (12.4-16.6)
[2024-09-29 07:42] LABS: INR 1.07 (0.83-1.09); PROTHROMBIN TIME (PATIENT) 11.8 SEC (9.7-13.0)
[2024-09-29 08:06] LABS: POTASSIUM 5.1 mmol/L (3.5-5.1)
[2024-09-29 08:15] LABS: ALBUMIN 2.9 g/dl (3.4-5.0); BLOOD UREA NITROGEN 45.4 mg/dL (7-18); CALCIUM 8.4 mg/dL (8.5-10.1); MAGNESIUM 2.2 mg/dL (1.8-2.4)
[2024-09-29 08:19] LABS: CREATININE 1.7 mg/dL (0.55-1.3)
[2024-09-29 08:20] LABS: TOT PROT 5.4 g/dl (6.4-8.2)
[2024-09-29 08:21] LABS: BILIRUBIN,TOTAL 0.5 mg/dL (0.2-1)
[2024-09-29] MEDS: METOPROLOL SUCCINATE 100 MG, METOPROLOL SUCCINATE 50 MG PO SCH (09:29)
[2024-09-29] MEDS ORDERED: FENTANYL CITRATE/PF 50 MCG/ML VIAL ONE (12:09)
[2024-09-29] MEDS ORDERED: MIDAZOLAM HCL 2 MG/2 ML SINGLE DOSE VIAL ONE (12:09)
[2024-09-29] MEDS: FENTANYL CITRATE/PF 50 MCG/ML VIAL IVPUSH ONE ×2 (12:49→12:57)
[2024-09-29] MEDS: MIDAZOLAM HCL 2 MG/2 ML SINGLE DOSE VIAL IVPUSH ONE ×2 (12:49→12:56)
[2024-09-29] MEDS: SODIUM CHLORIDE 500 ML IV ONE (17:11)
[2024-09-29 18:14] LABS: FREE KAPPA,SERUM 56.6 mg/L (3.3-19.4)
[2024-09-30 08:25] LABS: ABSOLUTE IMMATURE GRANULOCYTES 0.04 x10^3/uL (0.0-0.031); BASOPHILS # 0.04 x10^3/uL (0.01-0.08); EOSINOPHIL % 4.6 % (0.7-5.8); HEMATOCRIT 24.5 % (34.1-44.9); HEMOGLOBIN 7.9 g/dL (11.2-15.7); MCHC 32.2 g/dl (32.2-35.5); MEAN CELL VOLUME 108.4 fl (79.4-94.8); MONOCYTE # 0.24 x10^3/uL (0.24-0.86); MONOCYTE % 5.6 % (4.7-12.5); PLATELET COUNT 157 x10^3/uL (182-369); RDW 21.2 % (12.4-16.6)
[2024-09-30 09:23] LABS: POTASSIUM 5.3 mmol/L (3.5-5.1)
[2024-09-30 09:34] LABS: CALCIUM 8.5 mg/dL (8.5-10.1)
[2024-09-30 09:35] LABS: ALBUMIN 2.9 g/dl (3.4-5.0); BLOOD UREA NITROGEN 46.7 mg/dL (7-18); MAGNESIUM 2.2 mg/dL (1.8-2.4)
[2024-09-30 09:38] LABS: CREATININE 1.7 mg/dL (0.55-1.3)
[2024-09-30] MEDS: PANTOPRAZOLE 40 MG TABLET PO SCH (09:39)
[2024-09-30 09:40] LABS: BILIRUBIN,TOTAL 0.6 mg/dL (0.2-1); TOT PROT 5.3 g/dl (6.4-8.2)
[2024-09-30 12:43] VITALS: TEMP 97.9
[2024-09-30 13:55] VITALS: BP 115/61; PULSE 100; RESP 20
[2024-09-30] MEDS ORDERED: SODIUM ZIRCONIUM CYCLOSILICATE (LOKELMA) 10 GM PACKET PO SCH (17:33)
[2024-09-30] MEDS: SODIUM ZIRCONIUM CYCLOSILICATE (LOKELMA) 5 GM PACKET PO SCH (17:38)
[2024-09-30] MEDS ORDERED: SODIUM ZIRCONIUM CYCLOSILICATE (LOKELMA) 5 GM PACKET PO SCH ×2 (17:45)
[2024-09-30] MEDS ORDERED: SODIUM ZIRCONIUM CYCLOSILICATE (LOKELMA) 5 GM PACKET PO ONE (17:45)
[2024-09-30] MEDS ORDERED: APIXABAN 5 MG TABLET PO SCH (22:00)
[2024-10-01] MEDS ORDERED: SODIUM ZIRCONIUM CYCLOSILICATE (LOKELMA) 10 GM PACKET PO SCH (10:00)
== END 2024-09-30 18:51 | disposition home or self-care (01) | DRG 809 ==
LOC: FER 16:52 → FM/S 18:59 → OBSVTOIN 09-27 10:38 → J8W 09-27 11:49
PROVIDERS: ADMIT Hospitalist; ATTEND Nurse Practitioner Acute Care
PROC: 07DR3ZX Extraction of Iliac Bone Marrow, Percutaneous Approach, Diagnostic (ICD-10-PCS; principal; 2024-09-29)
DX: D61.818 Other pancytopenia (principal); I13.0 Hypertensive heart and chronic kidney disease with heart failure and stage 1 through stage 4 chronic kidney disease, or unspecified chronic kidney disease; I50.22 Chronic systolic (congestive) heart failure; L03.115 Cellulitis of right lower limb; E78.5 Hyperlipidemia, unspecified; I48.91 Unspecified atrial fibrillation; E87.5 Hyperkalemia; M54.16 Radiculopathy, lumbar region; F41.9 Anxiety disorder, unspecified; E11.22 Type 2 diabetes mellitus with diabetic chronic kidney disease; M50.30 Other cervical disc degeneration, unspecified cervical region; M51.379 Other intervertebral disc degeneration, lumbosacral region without mention of lumbar back pain or lower extremity pain; N18.9 Chronic kidney disease, unspecified; I08.2 Rheumatic disorders of both aortic and tricuspid valves; I25.10 Atherosclerotic heart disease of native coronary artery without angina pectoris; Z96.641 Presence of right artificial hip joint; Z96.653 Presence of artificial knee joint, bilateral
CPT/HCPCS: 20225; 36415; 36430; 77012-TC; 80048; 80053; 82272; 82607; 82728; 82746; 82962; 83540; 83550; 83615; 83735; 83883; 84155; 84165; 85025; 85610; 85730; 86803; 86850; 86900; 86901; 86922; 87389; 88300-TC; 93005; 97116-GP; 97162-GP; 99285-25; G0378; P9058